=== PATIENT | female | born 1975 | race Caucasian/White ===

== ENCOUNTER 2017-12-26 12:09 | Emergency (ER) | payer BC ==
--- OUTSIDE RECORDS SUMMARY | 2017-12-26 12:11 | XMS REPORT | Clinical Summary ---
:1975 Author Organization [facility] Address [address] [place] [address] Care Team Providers Name Role Phone Asked, No Pcp Primary Care Provider Unavailable Allergies Not on File Current Medications Not on file Active Problems Not on file Encounters Date Type Specialty Care Team Description 03/30/2017 Hospital Encounter Radiology Dora Valdes MD 03/30/2017 Ancillary Orders Radiology Dora Valdes MD 03/11/2017 Hospital Encounter Radiology Dora Valdes MD Encounter for screening mammogram for malignant neoplasm of breast; Encounter for gynecological examination (general) (routine) without abnormal findings 01/13/2017 Transcribe Orders Access Dora Valdes MD Encounter for screening mammogram for malignant neoplasm of breast (Primary Dx); Encounter for gynecological examination (general) (routine) without abnormal findings after 12/25/2016 Social History Tobacco Use Types Packs/Day Years Used Date Never Assessed Sex Assigned at Date Recorded Not on file Last Filed Vital Signs Not on file Plan of Treatment Health Maintenance Due Date Last Done Comments CERVICAL CANCER SCREENING 1995 INFLUENZA VACCINE 11/24/2017 Procedures Procedure Name Priority Date/Time Associated Diagnosis Comments MAMMO SCREENING W Routine 03/11/2017 4:56 Encounter for Results for this CAD BILATERAL PM FORMAT PROOFREADER screening mammogram procedure are in for malignant neoplasm the results of breast section. Encounter for gynecological examination (general) (routine) without abnormal findings after 12/25/2016 Results Mammo Screening w Cad Bilateral (03/11/2017 4:56 PM) Narrative Performed At EXAMINATION: MAMMO SCREENING W CAD BILATERAL 03/11/2017 4:30 PM [facility] COMPARISON:Outside mammograms dated 07/03/2014 performed at [facility] in [place], [place] submitted for comparison. TECHNIQUE: Bilateral digital screening mammography was performed and interpreted using computer-assisted detection. CLINICAL HISTORY: 42-year-old asymptomatic female with history of bilateral breast reduction in 2008. The patient presents for routine screening. FINDINGS: The breast tissue is heterogeneously dense which may obscure small masses. There are redemonstrated bilateral postsurgical changes of reduction mammoplasty. There are no suspicious masses, calcifications or distortions in either breast.There has been no significant interval change compared to prior. IMPRESSION: No specific mammographic features of malignancy. BI-RADS 2:BENIGN Recommend comparison with physical examination. In the absence of new clinical findings, the patient should return for bilateral screening mammography in 1 year. This facility is accredited by the [employer] for Mammography. A negative x-ray report should not delay biopsy if a dominant or clinically suspicious mass is present.Not all cancers are identified by x-ray. [id number] Performing Organization Address City/State/[place] Phone Number [facility] [id number] [place] [address] after 12/25/2016 Insurance Payer Benefit Plan / Group Subscriber ID Type Phone Address BCBS BCBS CHOICE PPO/FEDERAL EMPL PPO xxxxxxxxxxxx PPO BCBS BCBS CHOICE PPO/FEDERAL EMPL PPO xxxxxxxxxxxx PPO Home: [address] [phone] [place], [place] [id number]
[2017-12-26] MEDS ORDERED: ASPIRIN 81 MG CHEWABLE TABLET ONE (12:54)
--- NOTE | 2017-12-26 12:54 | RAD REPORT ---
EXAM DESCRIPTION: CT - Ct Stroke Brain Wo Cont - 12/26/2017 12:44 pm CLINICAL HISTORY: Aphasia;Confused;Visual disturbances<Reason For Exam> COMPARISON: None. TECHNIQUE: Computed axial tomography of the head was obtained. IV contrast was not requested. All CT scans are performed using dose optimization technique as appropriate and may include automated exposure control or mA/KV adjustment according to patient size. FINDINGS: An intracranial bleed is not seen . The ventricles are normal in caliber. No extra-axial fluid collection is noted. Fluid within the sinuses/ mastoids is not seen. IMPRESSION: No acute intracranial abnormality is seen. If patient's symptoms persist MRI of the bra in would be recommended. Jocelyn from the emergency room was notified 12:40 p.m. 12/26/2017
--- NOTE | 2017-12-26 13:01 | RAD REPORT ---
EXAM DESCRIPTION: Nellie Single View12/26/2017 12:53 pm CLINICAL HISTORY: cva COMPARISON: none FINDINGS: The lungs appear clear of acute infiltrate. The heart is normal size IMPRESSION: No acute abnormalities displayed
[2017-12-26 13:05] LABS: Absolute Lymphocytes (CBC) 1.9 K/uL (0.7-4.9); Absolute Monocytes 0.3 K/uL (0.1-1.3); Absolute Neutrophil 3.5 K/uL (1.8-8.0); Basophils % 0.7 % (0-1.3); Eosinophils % 4.3 % (0-4.4); Hematocrit 42.9 % (36.0-45.0); Lymphocytes % 31.9 % (15.3-44.8); MCH 30.2 pg (27.0-35.0); MCV 86.6 fL (80-100); MPV 9.1 fL (7.6-11.3); Monocytes % 5.5 % (3.3-12.3); RBC Red Blood Cell Count 4.95 M/uL (3.86-4.86)
--- NOTE | 2017-12-26 13:05 | EDPHYS ---
Physician Documentation [facility] Name: Oralia Warren Age: 42 yrs Sex: Female : 1975 Arrival Date: 12/26/2017 Time: 12:11 Bed 7 Private MD: ED Physician Felix Dougherty HPI: 12/26 13:17 This 42 yrs old Female presents to ER via Ambulatory with complaints of kdr Vision Problem, Confusion. 13:17 The patient presents to the emergency department with weakness of the left side of the kdr face, a speech or higher order brain function problem, aphasia, that is mild, paresthesias of the left side of the face, that is mild, a vision problem, Scotomas to right visual field in both eyes. Onset: The symptoms/episode began/occurred acutely, suddenly, at 11:30. Context: occurred at home, occurred while the patient was at rest. Associated signs and symptoms: The patient has no apparent associated signs or symptoms. Associated signs and symptoms: Pertinent positives: visual field changes, Pertinent negatives: headache, seizure, syncope, near-syncope, blurred vision, loss of vision. Severity of symptoms: At their worst the symptoms were mild in the emergency department the symptoms have resolved and did so just prior to arrival. Patient's baseline: Neuro: alert and fully oriented, Motor: no deficits, Ambulation: walks without assistance, Speech: normal, The patient has a previous history of Migraine Hx during puberty. Current symptoms: minor left facial weakness and tingling. The patient has not experienced similar symptoms in the past. The patient has not recently seen a physician. 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 - Social history:: Smoking status: Patient/guardian denies using tobacco. - Ebola Screening: : No symptoms or risks identified at this time. ROS: 13:17 Constitutional: Negative for fever, chills, and weight loss, Eyes: Negative for injury, kdr pain, redness, and discharge, ENT: Negative for injury, pain, and discharge, Neck: Negative for injury, pain, and swelling, Cardiovascular: Negative for chest pain, palpitations, and edema, Respiratory: Negative for shortness of breath, cough, wheezing, and pleuritic chest pain, Abdomen/GI: Negative for abdominal pain, nausea, vomiting, diarrhea, and constipation, Back: Negative for injury and pain, : Negative for injury, bleeding, discharge, and swelling, MS/Extremity: Negative for injury and deformity, Skin: Negative for injury, rash, and discoloration, Psych: Negative for depression, anxiety, suicide ideation, homicidal ideation, and hallucinations, Allergy/Immunology: Negative for hives, rash, and allergies, Endocrine: Negative for neck swelling, polydipsia, polyuria, polyphagia, and marked weight changes, Hematologic/Lymphatic: Negative for swollen nodes, abnormal bleeding, and unusual bruising. 13:17 Neuro: Positive for numbness, speech changes, Negative for altered mental status, headache, loss of consciousness, seizure activity, syncope, near syncope, tremor, weakness. Exam: 13:04 Constitutional: This is a well developed, well nourished patient who is awake, alert, kdr and in no acute distress. Head/Face: Normocephalic, atraumatic. Eyes: Pupils equal round and reactive to light, extra-ocular motions intact. Lids and lashes normal. Conjunctiva and sclera are non-icteric and not injected. Cornea within normal limits. Periorbital areas with no swelling, redness, or edema. Neck: Trachea midline, no thyromegaly or masses palpated, and no cervical lymphadenopathy. Supple, full range of motion without nuchal rigidity, or vertebral point tenderness. No Meningismus. Chest/axilla: Normal chest wall appearance and motion. Nontender with no deformity. No lesions are appreciated. Cardiovascular: Regular rate and rhythm with a normal S1 and S2. No gallops, murmurs, or rubs. Normal PMI, no JVD. No pulse deficits. Respiratory: Lungs have equal breath sounds bilaterally, clear to auscultation and percussion. No rales, rhonchi or wheezes noted. No increased work of breathing, no retractions or nasal flaring. Abdomen/GI: Soft, non-tender, with normal bowel sounds. No distension or tympany. No guarding or rebound. No evidence of tenderness throughout. Back: No spinal tenderness. No costovertebral tenderness. Full range of motion. Skin: Warm, dry with normal turgor. Normal color with no rashes, no lesions, and no evidence of cellulitis. MS/ Extremity: Pulses equal, no cyanosis. Neurovascular intact. Full, normal range of motion. Psych: Awake, alert, with orientation to person, place and time. Behavior, mood, and affect are within normal limits. 13:04 Neuro: Orientation: is normal, Mentation: is normal, Cranial nerves: normal except Left facial nerve weakness (V \T\ VII), Cerebellar function: is grossly normal, Motor: is normal, Sensation: no obvious gross deficits. Vital Signs: 12:18 BP 158 / 119; Pulse 92; Resp 18 S; Temp 97.9(TE); Pulse Ox 100% on R/A; Weight 74.84 kg aa5 (R); Height 5 ft. 2 in. (157.48 cm) (R); Pain 0/10; 12:47 Temp 98.2(TE); sg 12:58 BP 148 / 88; Pulse 76; Resp 16; Pulse Ox 100% on R/A; la1 13:07 BP 135 / 98; Pulse 76; Resp 19; Pulse Ox 100% on R/A; la1 12:18 Body Mass Index 30.18 (74.84 kg, 157.48 cm) aa5 NIH Stroke Scale Scores: 12:41 NIHSS Score: 1 la1 13:04 NIHSS Score: 1 kdr MDM: 12:45 Data reviewed: vital signs, nurses notes, lab test result(s), EKG, radiologic studies. kdr Counseling: I had a detailed discussion with the patient and/or guardian regarding: the historical points, exam findings, and any diagnostic results supporting the discharge/admit diagnosis, lab results, radiology results, the need to transfer to another facility. ED course: 12:40 CT Negative, D/w neurology at [facility], agree no tPA, ASA only now, accept in transfer to [facility] service with MRI/neurology consult. 13:04 Patient medically screened. kdr 12/26 12:37 Order name: Hepatic Function kdr 12/26 12:37 Order name: Basic Metabolic Panel kdr 12/26 12:37 Order name: CBC with Diff kdr 12/26 12:37 Order name: Protime (+inr) kdr 12/26 12:37 Order name: Ptt, Activated kdr 12/26 12:37 Order name: CT Stroke Brain w/o Contrast kdr 12/26 12:37 Order name: Stroke CXR 1 View kdr 12/26 12:37 Order name: EKG; Complete Time: 12:38 kdr 12/26 12:37 Order name: Accucheck; Complete Time: 12:55 kdr 12/26 12:37 Order name: Cardiac monitoring; Complete Time: 12:55 kdr 12/26 12:37 Order name: EKG - Nurse/Tech; Complete Time: 12:55 kdr 12/26 12:37 Order name: IV Saline Lock; Complete Time: 12:51 kdr 12/26 12:37 Order name: Labs collected and sent; Complete Time: 12:51 kdr 12/26 12:37 Order name: NPO; Complete Time: 12:51 kdr 12/26 12:37 Order name: O2 Per Protocol; Complete Time: 12:51 kdr 12/26 12:37 Order name: O2 Sat Monitoring; Complete Time: 12:51 kdr 12/26 12:37 Order name: Stroke Swallow Screen; Complete Time: 12:51 kdr Administered Medications: 12:55 Drug: Aspirin Chewable Tablet 324 mg Route: PO; la1 13:04 Follow up: Response: No adverse reaction la1 Point of Care Testing: Blood Glucose: 12:45 Blood Glucose: 87 mg/dL; sg Ranges: Critical Glucose Levels:Adult <50 mg/dl or >400 mg/dl <40 mg/dl or >180 mg/dl Disposition: 12/26/17 13:04 Transfer ordered to [facility]. Diagnosis is Visual disturbance (bilateral right visual field scotomas) , expressive and receptive aphasia - both resolved. persistent left facial weakness. - Reason for transfer: Higher level of care. - Accepting physician is Dr. Dos Santos. - Condition is Fair. - Problem is new. - Symptoms have improved. NIH Stroke Scale - NIH Stroke Score Date: 12/26/2017 Time: 12:41 Total Score = 1 1a. Level of Consciousness (LOC) - 0(Alert) 1b. Level of Consciousness (LOC) (Year \T\ Age) - 0(Both) 1c. LOC Commands (Open \T\ Closes Eyes/Field Geologist) - 0(Both) 2. Best Gaze (Lateral Gaze Paresis) - 0(Normal) 3. Visual Field Loss - 0(No visual loss) 4. Facial Palsy - 1(Minor Paralysis) 5a. Left Arm: Motor (10-second hold) - 0(No drift) 5b. Right Arm: Motor (10-second hold) - 0(No drift) 6a. Left Leg: Motor (5-second hold - always test supine) - 0(No drift) 6b. Right Leg: Motor (5-second hold - always test supine) - 0(No drift) 7. Limb Ataxia (finger/nose \T\ heel/gonsales - test with eyes open) - 0(Absent) 8. Sensory Loss (pinprick arms/legs/face) - 0(Normal) 9. Best Language: Aphasia (description/naming/reading) - 0(No aphasia) 10. Dysarthria (speech clarity - read or repeat words) - 0(Normal) 11. Extinction and Inattention (visual/tactile/auditory/spatial/personal) - 0(No abnormality) Initials: la1 NIH Stroke Scale - NIH Stroke Score Date: 12/26/2017 Time: 13:04 Total Score = 1 1a. Level of Consciousness (LOC) - 0(Alert) 1b. Level of Consciousness (LOC) (Year \T\ Age) - 0(Both) 1c. LOC Commands (Open \T\ Closes Eyes/Field Geologist) - 0(Both) 2. Best Gaze (Lateral Gaze Paresis) - 0(Normal) 3. Visual Field Loss - 0(No visual loss) 4. Facial Palsy - 1(Minor Paralysis) 5a. Left Arm: Motor (10-second hold) - 0(No drift) 5b. Right Arm: Motor (10-second hold) - 0(No drift) 6a. Left Leg: Motor (5-second hold - always test supine) - 0(No drift) 6b. Right Leg: Motor (5-second hold - always test supine) - 0(No drift) 7. Limb Ataxia (finger/nose \T\ heel/gonsales - test with eyes open) - 0(Absent) 8. Sensory Loss (pinprick arms/legs/face) - 0(Normal) 9. Best Language: Aphasia (description/naming/reading) - 0(No aphasia) 10. Dysarthria (speech clarity - read or repeat words) - 0(Normal) 11. Extinction and Inattention (visual/tactile/auditory/spatial/personal) - 0(No abnormality) Initials: kdr Signatures: Dispatcher [employer] EDNY Felix Dougherty MD MD kdr Leyda Grant, RN RN aa5 Chino Panchal RN RN la1 Corrections: (The following items were deleted from the chart) 12:40 12:37 Ct Stroke Brain Wo Cont ordered. [facility] EDNY 13:49 13:04 12/26/2017 13:04 Transfer ordered to [facility]. la1 Diagnosis is Visual disturbance (bilateral right visual field scotomas) , expressive and receptive aphasia - both resolved. persistent left facial weakness. Reason for transfer: Higher level of care. Accepting physician is Dr. Dos Santos. Condition is Fair. Problem is new. Symptoms have improved. kdr
--- NOTE | 2017-12-26 13:05 | ER ---
Nurse's Notes [facility] Name: Oralia Warren Age: 42 yrs Sex: Female : 1975 Arrival Date: 12/26/2017 Time: 12:11 Bed 7 Private MD: Diagnosis: Visual disturbance (bilateral right visual field scotomas) , expressive and receptive aphasia - both resolved. persistent left facial weakness Presentation: 12/26 12:15 Presenting complaint: Patient states: "I had eye surgery about 2 months ago but today aa5 around 11 am I was seeing floaters and it lasted about 30 minutes and went away". Pt states "I was trying to text my doctor and I was having trouble texting because I was confused". Pt reports tingling to left side of face. A\\T\\O x 4 in triage, telecommunications clerk equal, speech is clear, steady gait, PERRL. Transition of care: patient was not received from another setting of care. Onset of symptoms was December 26, 2017. Risk Assessment: Do you want to hurt yourself or someone else? Patient reports no desire to harm self or others. Initial Sepsis Screen: Does the patient meet any 2 criteria? No. Patient's initial sepsis screen is negative. Does the patient have a suspected source of infection? No. Patient's initial sepsis screen is negative. Care prior to arrival: None. 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 - Social history:: Smoking status: Patient/guardian denies using tobacco. - Ebola Screening: : No symptoms or risks identified at this time. Screenin:41 Abuse screen: Denies threats or abuse. Nutritional screening: No deficits noted. la1 Tuberculosis screening: No symptoms or risk factors identified. Fall Risk None identified. 12:54 The patient has not been NPO before screening. The patient is alert, able to follow la1 commands. The patient does not exhibit slurred or garbled speech The patient is not exhibiting difficulty speaking. The patient is exhibiting difficulty understanding words. The patient is able to swallow own secretions with no drooling or need for suction. Patient tolerated one teaspoon of water. No drooling, immediate coughing, gurgling, or clearing of the throat was noted. The patient tolerated 90mL of water. No drooling, immediate coughing, gurgling, or clearing of the throat was noted. The patient passed the bedside swallow screening. Oral medications may be given as ordered. Contact Physician for further diet orders. Provider notified of bedside swallow screening results: Felix Dougherty MD. Assessment: 12:32 Reassessment: code stroke called at 1231. la1 12:41 Reassessment: erp at bedside. General: Appears comfortable, Behavior is calm, la1 cooperative. Pain: Denies pain. Neuro: Level of Consciousness is awake, alert, obeys commands, Oriented to person, place, time, situation, Airway Controller are equal bilaterally Moves all extremities. Full function Gait is steady, Speech is normal, Facial droop on left, Pupils are PERRLA, Tingling in left cheek and left jaw. Cardiovascular: Denies chest pain, shortness of breath, Heart tones S1 S2 present Capillary refill < 3 seconds. Respiratory: Airway is patent Respiratory effort is even, unlabored, Respiratory pattern is regular, symmetrical. GI: No signs and/or symptoms were reported involving the gastrointestinal system. : No signs and/or symptoms were reported regarding the genitourinary system. 13:35 Reassessment: Patient appears in no apparent distress at this time. No changes from la1 previously documented assessment. Patient and/or family updated on plan of care and expected duration. Pain level reassessed. Vital Signs: 12:18 BP 158 / 119; Pulse 92; Resp 18 S; Temp 97.9(TE); Pulse Ox 100% on R/A; Weight 74.84 kg aa5 (R); Height 5 ft. 2 in. (157.48 cm) (R); Pain 0/10; 12:47 Temp 98.2(TE); sg 12:58 BP 148 / 88; Pulse 76; Resp 16; Pulse Ox 100% on R/A; la1 13:07 BP 135 / 98; Pulse 76; Resp 19; Pulse Ox 100% on R/A; la1 12:18 Body Mass Index 30.18 (74.84 kg, 157.48 cm) aa5 NIH Stroke Scale Scores: 12:41 NIHSS Score: 1 la1 13:04 NIHSS Score: 1 kdr ED Course: 12:11 Patient arrived in ED. mr 12:17 Triage completed. aa5 12:17 Arm band placed on. aa5 12:27 Felix Dougherty MD is Attending Physician. kdr 12:32 Chino Panchal, RN is Primary Nurse. la1 12:37 CT completed. Patient moved to CT via stretcher. Patient moved back from CT. cw1 12:42 Placed in gown. Bed in low position. Call light in reach. campus monitor on. Pulse ox la1 on. NIBP on. 12:44 CT Stroke Brain w/o Contrast In Process Unspecified. EDMS 12:46 Inserted saline lock: 22 gauge in right antecubital area, using aseptic technique. sg ,using aseptic technique. insertion by Chino Panchal RN Blood collected. 12:50 X-ray completed. Portable x-ray completed in exam room. Patient tolerated procedure jb2 well. 12:51 Stroke CXR 1 View In Process Unspecified. EDMS 12:59 \\T\\1240 initiated a transfer to [facility] with [facility]/ \\T\\1241 connected the nuerologist eb Dr. Hinson with ED doctor for patient tranfer consulation/ \\T\\ [address] Madrigal with ED doctor for patient transfer consulation/ \\T\\1256 administrative approval given by Helen Fontaine pt to go to room 2454- report to be called to [phone]. 13:49 No provider procedures requiring assistance completed. Patient transferred, IV remains la1 in place. Administered Medications: 12:55 Drug: Aspirin Chewable Tablet 324 mg Route: PO; la1 13:04 Follow up: Response: No adverse reaction la1 Point of Care Testing: Blood Glucose: 12:45 Blood Glucose: 87 mg/dL; sg Ranges: Outcome: 13:04 ER care complete, transfer ordered by . kdr 13:49 Transferred by ground EMS to [facility], Transfer form completed. la1 X-rays sent w/ patient. 13:49 Condition: stable 13:49 Instructed on the need for transfer. 13:49 Patient left the ED. la1 NIH Stroke Scale - NIH Stroke Score Date: 12/26/2017 Time: 12:41 Total Score = 1 1a. Level of Consciousness (LOC) - 0(Alert) 1b. Level of Consciousness (LOC) (Year \\T\\ Age) - 0(Both) 1c. LOC Commands (Open \\T\\ Closes Eyes/Facilities Maintenance Manager) - 0(Both) 2. Best Gaze (Lateral Gaze Paresis) - 0(Normal) 3. Visual Field Loss - 0(No visual loss) 4. Facial Palsy - 1(Minor Paralysis) 5a. Left Arm: Motor (10-second hold) - 0(No drift) 5b. Right Arm: Motor (10-second hold) - 0(No drift) 6a. Left Leg: Motor (5-second hold - always test supine) - 0(No drift) 6b. Right Leg: Motor (5-second hold - always test supine) - 0(No drift) 7. Limb Ataxia (finger/nose \\T\\ heel/gonsales - test with eyes open) - 0(Absent) 8. Sensory Loss (pinprick arms/legs/face) - 0(Normal) 9. Best Language: Aphasia (description/naming/reading) - 0(No aphasia) 10. Dysarthria (speech clarity - read or repeat words) - 0(Normal) 11. Extinction and Inattention (visual/tactile/auditory/spatial/personal) - 0(No abnormality) Initials: ms1 NIH Stroke Scale - NIH Stroke Score Date: 12/26/2017 Time: 13:04 Total Score = 1 1a. Level of Consciousness (LOC) - 0(Alert) 1b. Level of Consciousness (LOC) (Year \\T\\ Age) - 0(Both) 1c. LOC Commands (Open \\T\\ Closes Eyes/Facilities Maintenance Manager) - 0(Both) 2. Best Gaze (Lateral Gaze Paresis) - 0(Normal) 3. Visual Field Loss - 0(No visual loss) 4. Facial Palsy - 1(Minor Paralysis) 5a. Left Arm: Motor (10-second hold) - 0(No drift) 5b. Right Arm: Motor (10-second hold) - 0(No drift) 6a. Left Leg: Motor (5-second hold - always test supine) - 0(No drift) 6b. Right Leg: Motor (5-second hold - always test supine) - 0(No drift) 7. Limb Ataxia (finger/nose \\T\\ heel/gonsales - test with eyes open) - 0(Absent) 8. Sensory Loss (pinprick arms/legs/face) - 0(Normal) 9. Best Language: Aphasia (description/naming/reading) - 0(No aphasia) 10. Dysarthria (speech clarity - read or repeat words) - 0(Normal) 11. Extinction and Inattention (visual/tactile/auditory/spatial/personal) - 0(No abnormality) Initials: kdr Signatures: Dispatcher [employer] EDGera Jefferson, RN RN sg Felix Dougherty MD MD kdr Rivera, Maria mr RiteshMaurice jb2 Leyda Grant RN RN aa5 Emma Mars cw1 Chino Panchal RN RN la1 Roseann Galvan Corrections: (The following items were deleted from the chart) 12:19 12:15 Presenting complaint: Patient states: "I had eye surgery about 2 months aa5 ago but today around 11 am I was seeing floaters and it lasted about 30 minutes and went away". Pt states "I was trying to text my doctor and I was having trouble texting because I was confused" aa5 12:19 12:15 Acuity: SHIRA 3 aa5 aa5 12:25 12:15 Presenting complaint: Patient states: "I had eye surgery about 2 months aa5 ago but today around 11 am I was seeing floaters and it lasted about 30 minutes and went away". Pt states "I was trying to text my doctor and I was having trouble texting because I was confused". Pt reports tingling to left side of face. aa5
[2017-12-26 13:08] LABS: Protime INR 0.9
[2017-12-26 13:31] LABS: Albumin 4.4 g/dL (3.4-5.0); Bilirubin Direct 0.1 mg/dL (0-0.2); Bilirubin Total 0.3 mg/dL (0.2-1.0); Potassium 3.4 mmol/L (3.5-5.1); Protein, Total 7.9 g/dL (6.4-8.2)
--- NOTE | 2017-12-27 07:56 | EKG ---
Test Date: 2017-12-26 Test Time: 12:41:20 [employer]en Fence Erector: KIMBERLY MEASUREMENT RESULTS: Intervals: Rate: 77 NH: 150 QRSD: 96 QT: 390 QTc: 441 [place]: P: 14 NH: 150 QRS: 9 T: 22 INTERPRETIVE STATEMENTS: Normal sinus rhythm Cannot rule out Anterior infarct, age undetermined Abnormal ECG No previous ECG available for comparison Electronically Signed On 12-27-17 07:54:58 CDT by Titus Davila
== END 2017-12-26 13:49 | disposition short-term general hospital (02) ==
LOC: ER 12:09
DX: R29.810 Facial weakness (principal)
CPT/HCPCS: 36415; 70450; 71045; 80048; 80076; 82962; 85025; 85610; 85730; 93005; 99285

== ENCOUNTER 2020-01-19 17:33 | Emergency (ER) | payer BC ==
--- OUTSIDE RECORDS SUMMARY | 2020-01-19 17:35 | XMS REPORT | Continuity of Care Document ---
:1975 Author Organization [facility] t Address [address] [place] [address] Care Team Providers Name Role Phone DAYLIN Attending Clinician Unavailable DAYLIN Admitting Clinician Unavailable Problems Condition Condition Condition Status Onset Resolution Last Treating Co mments Source Name Details Category Date Date Treatment Clinician Date Numbness N[facility] Medical [address] [place] [address] CVA CVA Disease Active [facility] (cerebral 12-26 [place] [facility] - vascular vascular 00:00: Medica l accident) accident) 00 [facility] Allergies, Adverse Reactions, Alerts This patient has no known allergies or adverse reactions. Family History Family Member Diagnosis Comments Start Date Stop Date Source Natural father Heart disease [facility] Maternal grandmother Diabetes [facility] Maternal grandmother Stroke [facility] Natural mother Hyperlipidemia [facility] Natural mother Hypertension [facility] Paternal grandmother Cancer [facility] Paternal uncle Alcohol abuse [facility] Paternal uncle Early [facility] Paternal uncle Heart disease [facility] Social History Social Habit Start Date Stop Date Quantity Comments Source Sex Assigned At [facility] Cigarettes smoked 2017-12-26 2017-12-26 [facility] - current (pack per 00:00:00 00:00:00 [facility] day[facility] - Reported Cigarette 2017-12-26 2017-12-26 [facility] - pack-years 00:00:00 00:00:00 [facility] History of tobacco 2012-12-26 Current smoker [facility] Smoking Status Start Date Stop Date Source Former smoker 2017-12-26 00:00:00 2017-12-26 00:00:[address] [facility] Medications Ordered Filled Start Stop Current Ordering Indication Dosage Frequency Signature Comments Components Source Medication Medication Date Date Medication? Clinician (SIG) Name Name omega-3 Yes 1g QD Take [address] [facility] fatty 12-26 [facility] - acids-fish 15:44: daily. Medic al oil 23 Center 340-1,000 mg Cap per capsule Procedures This patient has no known procedures. Results Test Description Test Time Test Comments Results Result Comments Source HEMOGLOBIN A1C 2017-12-27 09:49:00 Test Item Value Reference Range Interpretation Comme nts HEMOGLOBIN A1C (BEAKER) (test code = 368) 4.9 % 4.3-6.1 TSH/FREE T4 IF [id number] 06:28:00 Test Item Value Reference Range Interpretation Comments THYROID STIMULATING HORMONE 1.58 uIU/mL 0.35-4.94 (BEAKER) (test code = 772) VITAMIN B12 AND [id number] 06:28:00 Test Item Value Reference Range Interpretation Comments VITAMIN B12 (BEAKER) (test code = 445 pg/mL 213-816 774) FOLATE (BEAKER) (test code = 362) 11.3 ng/mL >=7.0 LIPID [id number] 05:59:00 Test Item Value Reference Range Interpretation Comments TRIGLYCERIDES (BEAKER) (test code = 104 mg/dL 540) CHOLESTEROL (BEAKER) (test code = 192 mg/dL 631) HDL CHOLESTEROL (BEAKER) (test code 43 mg/dL = 976) LDL CHOLESTEROL CALCULATED (BEAKER) 128 mg/dL (test code = 633) Triglyceride Reference Range: Low Risk <150 Borderline 150-199 High Risk 200-499 Very High Risk >=500Cholesterol Reference Range: Low Risk <200 Borderline 200-239 High Risk >240HDL Cholesterol Reference Range: Low Risk >=60 High Risk <40LDL Cholesterol Reference Range: Optimal <100 Near Optimal 100-129 Borderline 130-159 High 160-189 Very High >=190 FastingPREGNANCY SCREEN, [id number] 05:48:00 Test Item Value Reference Range Interpretation Comments TEST URINE (BEAKER) (test Negative code = 583) MR, MRA, BRAIN, WITHOUT [id number] 02:10:00Reason for exam:->Ischemic Stroke EvaluationFINAL REPORT CLINICAL HISTORY: Ischemic Stroke Evaluationexpressive aphasia TECHNIQUE: MRA of the head utilizing 3-D ghgd-ub-xextev technique, with 3-D reconstructions. MRA of the neck utilizing 2- D and 3-D lzrk-zt-kpzokt technique, with 3-D reconstructions. COMPARISON: None Findings: MRA head: There is no evidence of intracranial aneurysm, focal stenosis, or major branch vessel occlusion. MRA Neck The carotid arteries in the neck are patent including their bifurcations. There is antegrade flow in the vertebral arteries in the neck. IMPRESSION:No evidence for a major [place] proximal branch vessel occlusion. No evidence of hemodynamically significant stenosisin the cervical carotid or vertebral arteries by NASCET criteria. Signed: Ama Oliveira Verified Date/Time: 12/27/2017 02:10:36 Reading Location: [address] Transitional Reading Room MR, MRA, NECK, WITHOUT IV [id number] 02:10:00Reason for exam:->Ischemic Stroke EvaluationFINAL REPORT CLINICAL HISTORY: Ischemic Stroke Evaluationexpressive aphasia TECHNIQUE: MRA of the head utilizing 3-D eivq-wn-yujxms technique, with 3-D reconstructions. MRA of the neck utilizing 2- D and 3-D kqwy-qu-ybcmpf technique, with 3-D reconstructions. COMPARISON: None Findings: MRA head: There is no evidence of intracranial aneurysm, focal stenosis, or major branch vessel occlusion. MRA Neck The carotid arteries in the neck are patent including their bifurcations. There is antegrade flow in the vertebral arteries in the neck. IMPRESSION:No evidence for a major [place] proximal branch vessel occlusion. No evidence of hemodynamically significant stenosisin the cervical carotid or vertebral arteries by NASCET criteria. Signed: Ama Oliveira Verified Date/Time: 12/27/2017 02:10:36 Reading Location: [address] Transitional Reading Room MR, BRAIN, WITHOUT [id number] 23:00:00Reason for exam:->Ischemic Stroke EvaluationFINAL REPORT MRI Brain without contrast Clinical History: Ischemic Stroke Evaluationexpressive aphasia Technique: MRI of the brain utilizing axial T2, FLAIR, GRE, DWI; sagittal and coronal T1-weighted images. Comparisons: None Findings: There is no evidence of acute infarct or hemorrhage. Brain parenchyma is within normal limits. Ventricles are normal in size and configuration. There is no hydrocephalus or midline shift. There are no extra- axial fluid collections. The craniocervical junction is preserved. The major intracranial flow-voids appear patent. Mucosal thickening in the left maxillary sinus. Middle ears and mastoid air cells are clear. Intraorbital contents are unremarkable. No aggressive osseous or soft tissue lesions identified. IMPRESSION: No evidence of acuteinfarct, hemorrhage, or hydrocephalus. Signed: Ama Oliveira [facility] Verified Date/Time: 12/26/2017 23:00:57 Reading Location: [address] Transitional Reading Room BASI METABOLIC [id number] 18:34:00 Test Item Value Reference Range Interpretation Comments SODIUM (BEAKER) 138 meq/L 136-145 (test code = 381) POTASSIUM (BEAKER) 3.3 meq/L 3.5-5.1 L (test code = 379) CHLORIDE (BEAKER) 107 meq/L 98-107 (test code = 382) CO2 (BEAKER) (test 22 meq/L 22-29 code = 355) BLOOD UREA NITROGEN 8 mg/dL 7-21 (BEAKER) (test code = 354) CREATININE (BEAKER) 0.75 mg/dL 0.57-1.25 (test code = 358) GLUCOSE RANDOM 107 mg/dL 70-105 H (BEAKER) (test code = 652) CALCIUM (BEAKER) 9.6 mg/dL 8.4-10.2 (test code = 697) EGFR (BEAKER) (test 84 mL/min/1.73 ESTIMA LOWELL GFR IS code = 1092) sq m NOT ACCURATE CREATININE CLEARANCE IN PREDICTING GLOMERULAR FILTRATION RATE . ESTIMATED GFR I S NOT APPLICABLE FOR DIALYSIS PATIEN TS. CBC W/PLT COUNT & AUTO [id number] 18:18:00 Test Item Value Reference Range Interpretation Comments WHITE BLOOD CELL COUNT (BEAKER) 7.5 K/ L 3.5-10.5 (test code = 775) RED BLOOD CELL COUNT (BEAKER) 4.44 M/ L 3.93-5.22 (test code = 761) HEMOGLOBIN (BEAKER) (test code = 13.0 GM/DL 11.2-15.7 410) HEMATOCRIT (BEAKER) (test code = 38.4 % 34.1-44.9 411) MEAN CORPUSCULAR VOLUME (BEAKER) 86.5 fL 79.4-94.8 (test code = 753) MEAN CORPUSCULAR HEMOGLOBIN 29.3 pg 25.6-32.2 (BEAKER) (test code = 751) MEAN CORPUSCULAR HEMOGLOBIN CONC 33.9 GM/DL 32.2-35.5 (BEAKER) (test code = 752) RED CELL DISTRIBUTION WIDTH 12.4 % 11.7-14.4 (BEAKER) (test code = 412) PLATELET COUNT (BEAKER) (test 271 K/CU MM 150-450 code = 756) MEAN PLATELET VOLUME (BEAKER) 10.4 fL 9.4-12.3 (test code = 754) NUCLEATED RED BLOOD CELLS 0 /100 WBC 0-0 (BEAKER) (test code = 413) NEUTROPHILS RELATIVE PERCENT 54 % (BEAKER) (test code = 429) LYMPHOCYTES RELATIVE PERCENT 36 % (BEAKER) (test code = 430) MONOCYTES RELATIVE PERCENT 6 % (BEAKER) (test code = 431) EOSINOPHILS RELATIVE PERCENT 4 % (BEAKER) (test code = 432) BASOPHILS RELATIVE PERCENT 1 % (BEAKER) (test code = 437) NEUTROPHILS ABSOLUTE COUNT 4.06 K/ L 1.56-6.13 (BEAKER) (test code = 670) LYMPHOCYTES ABSOLUTE COUNT 2.68 K/ L 1.18-3.74 (BEAKER) (test code = 414) MONOCYTES ABSOLUTE COUNT (BEAKER) 0.44 K/ L 0.24-0.36 H (test code = 415) EOSINOPHILS ABSOLUTE COUNT 0.26 K/ L 0.04-0.36 (BEAKER) (test code = 416) BASOPHILS ABSOLUTE COUNT (BEAKER) 0.06 K/ L 0.01-0.08 (test code = 417) IMMATURE GRANULOCYTES-RELATIVE 0 % 0-1 PERCENT (BEAKER) (test code = 2801)
--- OUTSIDE RECORDS SUMMARY | 2020-01-19 17:35 | XMS REPORT | Clinical Summary ---
:1975 Author Organization [facility] Address [address] [place] [address] Care Team Providers Name Role Phone Unavailable Primary Care Provider Unavailable Allergies No Known Allergies Medications Medication Sig Dispensed Refills Start Date End Date Status omega-3 fatty Take 1 g by mouth 0 Active acids-fish oil daily. 340-1,000 mg Cap per capsule Active Problems Problem Noted Date Numbness 12/27/2017 CVA (cerebral vascular accident) 12/26/2017 Family History Medical History Relation Name Comments Heart disease Father Diabetes Maternal Grandmother Stroke Maternal Grandmother Hyperlipidemia Mother Hypertension Mother Cancer Paternal Grandmother Alcohol abuse Paternal Uncle Early Paternal Uncle Heart disease Paternal Uncle Relation Name Status Comments Father Alive Maternal Grandmother Alive Mother Alive thyroid disease Paternal Grandmother Alive Paternal Uncle Social History Tobacco Use Types Packs/Day Years Used Date Former Smoker 0.25 10 Quit: 12/27/19 13 Smokeless Tobacco: Never Used Tobacco Cessation: Counseling Given: No Alcohol Use Drinks/Week oz/Week Comments Yes 5 Cans of beer 3.0 Sex Assigned at Date Recorded Not on file Job Start Date Occupation Industry Not on file Not on file Not on file Travel History Travel Start Travel End No recent travel history available. Last Filed Vital Signs Not on file Plan of Treatment Not on file Results Not on fileafter 2019 Insurance Payer Benefit Plan / Subscriber ID Type Phone Address Group BLUE CROSS/BLUE BCBS OS xxxxxxxxxxxx PPO [phone] [address] SHIELD [place]/PP[place] [address] Advance Directives For more information, please contact:[place] [address] [place], [place] [phone] Code Status Date Activated Date Inactivated Comments Full Code 12/26/2017 4:54 PM 12/27/2017 5:36 PM This code status was determined by: Patient
[2020-01-19] MEDS ORDERED: MECLIZINE HCL 12.5 MG TAB ONE (18:49)
[2020-01-19] MEDS ORDERED: ONDANSETRON 4 MG/2 ML VIAL ONE (18:49)
[2020-01-19 19:08] LABS: Absolute Lymphocytes (CBC) 1.4 K/uL (0.7-4.9); Basophils % 0.6 % (0-1.3); Hematocrit 36.7 % (36.0-45.0); Lymphocytes % 22.9 % (15.3-44.8); MPV 9.1 fL (7.6-11.3); RBC Red Blood Cell Count 4.32 M/uL (3.86-4.86)
--- NOTE | 2020-01-19 19:08 | RAD REPORT ---
EXAM DESCRIPTION: RAD - Chest Single View - 01/19/2020 6:55 pm CLINICAL HISTORY: dizzinesssyncope, shortness of breath COMPARISON: Two chest December 06 TECHNIQUE: AP portable chest image was obtained 01/19/2020 6:55 pm . FINDINGS: Lungs are clear. Heart and vasculature are normal. No measurable pleural effusion and no p neumothorax. No acute bony abnormality seen. No acute aortic findings suspected. IMPRESSION: No acute cardiopulmonary process. No significant interval change.
--- NOTE | 2020-01-19 19:09 | RAD REPORT ---
EXAM DESCRIPTION: CT - Head Brain Wo Cont - 01/19/2020 6:56 pm CLINICAL HISTORY: DIZZINESS, syncope COMPARISON: Ct Stroke Brain Wo Cont dated 12/26/2017 TECHNIQUE: Axial 5 mm thick images of the head were obtained without IV contrast. All CT scans are performed using dose optimization technique as appropriate and may include automated exposure control or mA/KV adjustment according to patient size. FINDINGS: No intracranial hemorrhage, mass, edema or shift of mid-line structures. No acute infarcti on changes seen. No abnormal extra-axial fluid collections. Ventricles are normal. Mastoid air cells and visualized portions of the paranasal sinuses are clear. No acute bony findings. No significant change from comparison. IMPRESSION: Negative non-contrast CT head examination.
[2020-01-19 19:11] LABS: Protime INR 0.93
[2020-01-19 19:16] LABS: ALT/SGPT 30 U/L (12-78); AST/SGOT 20 U/L (15-37); Albumin 3.8 g/dL (3.4-5.0); Alkaline Phosphatase 47 U/L (45-117); BUN Blood Urea Nitrogen 10 mg/dL (7-18); Bicarbonate 28 mmol/L (21-32); Bilirubin Direct < 0.1 mg/dL (0-0.2); Bilirubin Total 0.2 mg/dL (0.2-1.0); Glucose Level 127 mg/dL (74-106); Magnesium 1.9 mg/dL (1.8-2.4); NT PRO-BNP 64 pg/mL (<125); Protein, Total 7.3 g/dL (6.4-8.2); Sodium Level 140 mmol/L (136-145); Troponin (Emerg Dept Use Only) < 0.02 ng/mL (0.0-0.045)
--- NOTE | 2020-01-19 20:31 | RAD REPORT ---
EXAM DESCRIPTION: CT - Head angio - 01/19/2020 8:21 pm CLINICAL HISTORY: DIZZINESS TECHNIQUE: During dynamic enhancement using nonionic IV contrast, axial 1 millimeter thick images of the head were obtained. Sagittal and axial reconstruction images were generated using MIP technique and reviewed. All CT scans are performed using dose optimization technique as appropriate and may include automated exposure control or mA/KV adjustment according to patient size. COMPARISON: CT head same date FINDINGS: No aneurysm or vascular malformation identified. Major venous sinuses are patent. No stenosis, named branch occlusion, vasculitis or other significant vascular finding identifiable. IMPRESSION: Negative CT angio head examination.
--- NOTE | 2020-01-19 20:34 | RAD REPORT ---
EXAM DESCRIPTION: CT - Neck Angio - 01/19/2020 8:21 pm CLINICAL HISTORY: dizziness TECHNIQUE: During dynamic enhancement using nonionic IV contrast, axial 2 mm thick images of the nec k were obtained. Sagittal and axial reconstruction images were generated using MIP technique and revi ewed. All CT scans are performed using dose optimization technique as appropriate and may include automated exposure control or mA/KV adjustment according to patient size. COMPARISON: CT head same date FINDINGS: No aneurysm or vascular malformation identified. No carotid or vertebral dissection. No aortic arch or great vessel origin abnormality seen. Left vertebral artery arises from the aorta a s a normal variant. There is a bovine configuration for the innominate and left common carotid arteri es also as a normal variant. Right vertebral artery origin is unremarkable. The origin of the left ve rtebral artery is not seen. No stenosis, vasculitis or other significant carotid artery finding. No f ocal abnormality of either vertebral artery. Basilar artery is normal. IMPRESSION: Negative CT angio neck examination.
--- NOTE | 2020-01-19 20:55 | EDPHYS ---
Physician Documentation [facility] Name: Oralia Dunn Age: 45 yrs Sex: Female : 1975 Arrival Date: 01/19/2020 Time: 17:36 Bed 20 Private MD: ED Physician Felix Dougherty HPI: 01/18 18:26 This 45 yrs old Female presents to ER via Wheelchair with complaints of jmm Dizziness, Nausea. 18:26 The patient presents with dizziness. Onset: The symptoms/episode began/occurred jmm acutely, just prior to arrival. Context: occurred while the patient was walking. Modifying factors: The symptoms are alleviated by holding head still, lying down, the symptoms are aggravated by movement of head, standing up, changing position. Associated signs and symptoms: Pertinent positives: nausea, Pertinent negatives: vomiting. This is a 45 year old female with no chronic medical conditions that presents to the ED with complaints acute onset dizziness beginning just prior to arrival. Symptoms are alleviated while holding head still. Denies vomiting but states being nausea. . Historical: - Allergies: 17:56 No Known Allergies; ll1 - PSHx: 17:56 eye surgery; Breast reduction; ll1 - Immunization history:: Flu vaccine is up to date. - Social history:: Smoking status: Patient denies any tobacco usage or history of. ROS: 18:26 Constitutional: Negative for fever, chills, and weight loss, Cardiovascular: Negative jmm for chest pain, palpitations, and edema, Respiratory: Negative for shortness of breath, cough, wheezing, and pleuritic chest pain. 18:26 Neuro: Positive for dizziness. 18:26 All other systems are negative. Exam: 18:26 Constitutional: This is a well developed, well nourished patient who is awake, alert, jmm and in no acute distress. Head/Face: atraumatic. 18:26 ENT: Moist Mucus Membranes Neck: Trachea midline, Supple Chest/axilla: Normal chest wall appearance and motion. Cardiovascular: Regular rate and rhythm. No edema appreciated Respiratory: Normal respirations, no respiratory distress appreciated Abdomen/GI: Non distended, soft Back: Normal ROM Skin: General appearance color normal MS/ Extremity: Moves all extremities, no obvious deformities appreciated, no edema noted to the lower extremities 18:26 Eyes: Nystagmus: fatiguable horizontal nystagmus. 18:26 Neuro: Orientation: is normal, Mentation: is normal, Memory: is normal, Cerebellar function: normal finger to nose testing, heel to gonsales testing is normal. 18:26 Psych: Behavior/mood is pleasant, cooperative. Vital Signs: 17:53 BP 144 / 93; Pulse 70; Resp 18; Temp 97.7; Pulse Ox 100% ; Weight 77.11 kg; Height 5 ll1 ft. 2 in. (157.48 cm); Pain 0/10; 20:08 BP 130 / 89; Pulse 72; Resp 17; Pulse Ox 100% on R/A; sg 17:53 Body Mass Index 31.09 (77.11 kg, 157.48 cm) ll1 MDM: 18:26 Patient medically screened. [facility] 20:54 Data reviewed: vital signs, nurses notes. Counseling: I had a detailed discussion with eugene the patient and/or guardian regarding: the historical points, exam findings, and any diagnostic results supporting the discharge/admit diagnosis, lab results, radiology results, the need for outpatient follow up, to return to the emergency department if symptoms worsen or persist or if there are any questions or concerns that arise at home. 01/18 18:35 Order name: Basic Metabolic Panel; Complete Time: 19:18 [facility] 01/18 18:35 Order name: CBC with Diff; Complete Time: 19:18 [facility] 01/18 18:35 Order name: LFT's; Complete Time: 19:18 [facility] 01/18 18:35 Order name: Magnesium; Complete Time: 19:18 [facility] 01/18 18:35 Order name: NT PRO-BNP; Complete Time: 19:18 [facility] 01/18 18:35 Order name: PT-INR; Complete Time: 19:18 [facility] 01/18 18:35 Order name: Troponin (emerg Dept Use Only); Complete Time: 19:18 [facility] 01/18 18:35 Order name: XRAY Chest (1 view); Complete Time: 19:18 [facility] 01/18 18:35 Order name: EKG; Complete Time: 18:35 [facility] 01/18 18:35 Order name: CT Head Brain wo Cont; Complete Time: 19:18 [facility] 01/18 19:56 Order name: Head Angio CT; Complete Time: 20:35 [facility] 01/18 19:56 Order name: CT Neck Angio; Complete Time: 20:35 [facility] 01/18 18:35 Order name: Cardiac monitoring; Complete Time: 19:08 [facility] 01/18 18:35 Order name: EKG - Nurse/Tech; Complete Time: 19:08 [facility] 01/18 18:35 Order name: IV Saline Lock; Complete Time: 18:45 [facility] 01/18 18:35 Order name: Labs collected and sent; Complete Time: 18:45 [facility] 01/18 18:35 Order name: O2 Per Protocol; Complete Time: 18:45 [facility] 01/18 18:35 Order name: O2 Sat Monitoring; Complete Time: 18:45 [facility] Administered Medications: 18:47 Drug: Zofran (Ondansetron) 4 mg Route: IVP; Site: right antecubital; em 19:13 Follow up: Response: No adverse reaction; Marked relief of symptoms; Nausea is decreasedem 19:13 Drug: Meclizine 50 mg Route: PO; em Disposition: 01/19 07:09 Co-signature as Attending Physician, Felix Dougherty MD I agree with the assessment and kdr plan of care. Disposition: 01/19/20 20:54 Discharged to Home. Impression: Dizziness and giddiness, Vertigo. - Condition is Stable. - Discharge Instructions: Benign Positional Vertigo, Dizziness, Dary Maneuver Self-Care. - Prescriptions for Zofran ODT 4 mg Oral tablet,disintegrating - place 1 tablet by TRANSLINGUAL route every 4-6 hours; 20 tablet. Meclizine 25 mg Oral Tablet - take 1 tablet by ORAL route every 8 hours As needed; 30 tablet. - Medication Reconciliation Form, Thank You Letter, Antibiotic Education, Prescription Opioid Use form. - Follow up: Private Physician; When: 2 - 3 days; Reason: Recheck today's complaints, Continuance of care, Re-evaluation by your physician. Signatures: Dispatcher [employer] Gera Rashid RN Felix Quispe MD MD kdr Mickail, Joel, PA PA jmm Munoz, Edgar, RN RN em Lewis, Lynsay, RN RN ll1 Corrections: (The following items were deleted from the chart) 01/18 21:16 20:54 01/19/2020 20:54 Discharged to Home. Impression: Dizziness and giddiness; sg Vertigo. Condition is Stable. Forms are Medication Reconciliation Form, Thank You Letter, Antibiotic Education, Prescription Opioid Use. Follow up: Private Physician; When: 2 - 3 days; Reason: Recheck today's complaints, Continuance of care, Re-evaluation by your physician. eugene
--- NOTE | 2020-01-19 20:55 | ER ---
Nurse's Notes [facility] Name: Oralia Dunn Age: 45 yrs Sex: Female : 1975 Arrival Date: 01/19/2020 Time: 17:36 Bed 20 Private MD: Diagnosis: Dizziness and giddiness;Vertigo Presentation: 01/18 17:53 Chief complaint: Patient states: Slight dizziness started at 1500 today. Major spinning ll1 since 1600 with nausea, and near syncope feeling. No trouble talking, grasps equal. Coronavirus screen: Client denies travel out of the [place] in the last 14 days. At this time, the client does not indicate any symptoms associated with coronavirus-19. Ebola Screen: Patient denies travel to an Ebola-affected area in the 21 days before illness onset. Initial Sepsis Screen: Does the patient meet any 2 criteria? No. Patient's initial sepsis screen is negative. Risk Assessment: Do you want to hurt yourself or someone else? Patient reports no desire to harm self or others. Onset of symptoms was January 19, 2020. 17:53 Method Of Arrival: Wheelchair ll1 17:53 Acuity: SHIRA 3 ll1 Historical: - Allergies: 17:56 No Known Allergies; ll1 - PSHx: 17:56 eye surgery; Breast reduction; ll1 - Immunization history:: Flu vaccine is up to date. - Social history:: Smoking status: Patient denies any tobacco usage or history of. Screenin:35 Abuse screen: Denies threats or abuse. Nutritional screening: No deficits noted. em Tuberculosis screening: No symptoms or risk factors identified. Fall Risk Secondary diagnosis (15 points) impaired mobility, IV access (20 points). Total Be Fall Scale indicates Low Risk Score (25-44 pts). Side Rails Up X 2 Frequent Obs/Assesments occuring Family Present and informed to notify staff if they need to leave bedside. Assessment: 18:45 General: Appears in no apparent distress. comfortable, Behavior is calm, cooperative, em appropriate for age, Denies fever. Pain: Denies pain. Neuro: Level of Consciousness is awake, alert, obeys commands, Oriented to person, place, time, situation, Appropriate for age Culinary Assistant are equal bilaterally Reports dizziness, Denies weakness blurred vision. Cardiovascular: Capillary refill < 3 seconds Patient's skin is warm and dry. Respiratory: Airway is patent Respiratory effort is even, unlabored, Respiratory pattern is regular, symmetrical. GI: Abdomen is flat, Reports nausea, vomiting. Derm: Skin is intact, is healthy with good turgor, Skin is pink, warm \T\ dry. Musculoskeletal: Capillary refill < 3 seconds, Range of motion: intact in all extremities. 19:25 Reassessment: pt ambulatory with steady gait across duarte to restroom, pt back into bed sg with no issues. 19:32 Reassessment: Santosh at bedside reassessing pt at this time. sg Vital Signs: 17:53 BP 144 / 93; Pulse 70; Resp 18; Temp 97.7; Pulse Ox 100% ; Weight 77.11 kg; Height 5 ll1 ft. 2 in. (157.48 cm); Pain 0/10; 20:08 BP 130 / 89; Pulse 72; Resp 17; Pulse Ox 100% on R/A; sg 17:53 Body Mass Index 31.09 (77.11 kg, 157.48 cm) ll1 ED Course: 17:36 Patient arrived in ED. ds1 17:56 Triage completed. ll1 17:56 Arm band placed on. ll1 18:26 Santosh Bashir PA is PHCP. [facility] 18:26 Felix Dougherty MD is Attending Physician. [facility] 18:28 Luan Hess, RN is Primary Nurse. em 18:47 Initial lab(s) drawn, by md, sent to lab. Inserted saline lock: 20 gauge in right em antecubital area, using aseptic technique. Blood collected. 18:56 XRAY Chest (1 view) In Process Unspecified. EDMS 18:56 CT Head Brain wo Cont In Process Unspecified. EDMS 20:[address] In Process Unspecified. EDMS 20:21 CT Neck Angio In Process Unspecified. EDMS 20:39 Primary Nurse role handed off by Luan Hess, RN 20:39 Gera Burgos, SMITHA is Primary Nurse. sg Administered Medications: 18:47 Drug: Zofran (Ondansetron) 4 mg Route: IVP; Site: right antecubital; em 19:13 Follow up: Response: No adverse reaction; Marked relief of symptoms; Nausea is decreasedem 19:13 Drug: Meclizine 50 mg Route: PO; em Outcome: 20:54 Discharge ordered by MD. knight 21:16 Patient left the ED. sg Signatures: Dispatcher [employer] Gera Rashid RN RN Santosh Aldridge PA PA jmm Munoz, Edgar, RN RN Ju Coats ds1 Mesha Rubio RN RN ll1 Corrections: (The following items were deleted from the chart) 18:04 17:53 Chief complaint: Patient states: Slight dizziness started at 1500 today. Major ll1 spinning since 1600 with nausea, and near syncope feeling. ll1
[2020-01-19 21:22] VITALS: TEMP 97.7; O2SAT 100
[2020-01-19 21:24] VITALS: BP 130/89
--- NOTE | 2020-01-20 12:25 | EKG ---
Test Date: 2020-01-19 Test Time: 18:53:13 Sales And Operations Trainee: RUBY MEASUREMENT RESULTS: Intervals: Rate: 67 ME: 136 QRSD: 90 QT: 438 QTc: 462 [place]: P: 41 ME: 136 QRS: 33 T: 38 INTERPRETIVE STATEMENTS: Normal sinus rhythm Cannot rule out Anterior infarct, age undetermined Abnormal ECG Compared to ECG 08/24/2018 16:47:39 Sinus arrhythmia no longer present Myocardial infarct finding still present Electronically Signed On 01-20-20 12:24:20 CDT by Titus Davila
== END 2020-01-19 21:16 | disposition home or self-care (01) ==
LOC: ER 17:33
DX: R42 Dizziness and giddiness (principal)
CPT/HCPCS: 93005; 85025; 80048; 36415; 83735; 85610; 80076; 84484; 83880; 70450; 70496; 70498; 71045; 96374; 99284; Q9967; J2405; J8597

== ENCOUNTER → 2023-05-31 | Emergency (ER) | payer BC ==
[2023-05-31 21:31] LABS: Absolute Lymphocytes (CBC) 1.7 K/uL (0.7-4.9); Hematocrit 27.6 % (36.0-45.0); Lymphocytes % 25.7 % (15.3-44.8); MCV 84.6 fL (80-100); MPV 7.9 fL (7.6-11.3); Platelets 366 thou/uL (152-406); RBC Red Blood Cell Count 3.26 M/uL (3.86-4.86)
[2023-05-31 21:52] LABS: ALT/SGPT 78 U/L (13-56); AST/SGOT 44 U/L (15-37); Albumin 2.6 g/dL (3.4-5.0); Alkaline Phosphatase 78 U/L (45-117); BUN Blood Urea Nitrogen 12 mg/dL (7-18); Bicarbonate 26 mEq/L (21-32); Bilirubin Total 0.2 mg/dL (0.2-1.0); Glomerular Filtration Rate 96 ml/min (=/>90); Glucose Level 95 mg/dL (74-106); Magnesium 1.8 mg/dL (1.6-2.4); NT PRO-BNP 192 pg/mL (<125); Potassium 3.7 mEq/L (3.5-5.1); Protein, Total 6.4 g/dL (6.4-8.2); Sodium Level 137 mEq/L (136-145); Troponin High Sensitivity 5.8 pg/mL (<58.9)
[2023-05-31 22:04] LABS: Bilirubin Direct < 0.1 mg/dL (0-0.2); Bilirubin Indirect, Calculated ND mg/dL (0.2-0.8)
--- NOTE | 2023-05-31 22:33 | ER ---
Nurse's Notes [facility] Name: Oralia Dunn Age: 48 yrs Sex: Female : 1975 Arrival Date: 05/31/2023 Time: 20:36 Bed 13 Private MD: Diagnosis: Elevated blood pressure, anemia, gestational hypertension. Dilutional anemia Presentation: 05/31 20:46 Chief complaint: Patient states: 5 DAYS POST . NOTICED HER BP WAS HIGH 150/104. jj7 Coronavirus screen: At this time, the client does not indicate any symptoms associated with coronavirus-19. Ebola Screen: No symptoms or risks identified at this time. Initial Sepsis Screen: Does the patient meet any 2 criteria? No. Patient's initial sepsis screen is negative. Does the patient have a suspected source of infection? No. Patient's initial sepsis screen is negative. Risk Assessment: Do you want to hurt yourself or someone else? Patient reports no desire to harm self or others. Onset of symptoms was May 31, 2023. 20:46 Method Of Arrival: Ambulatory [facility] 20:46 Acuity: SHIRA 4 jj7 Triage Assessment: 20:48 General: Appears in no apparent distress. comfortable, Behavior is calm, cooperative, jj7 appropriate for age. Pain: Denies pain. Cardiovascular: No deficits noted. Parent/caregiver reports patient has had HTN. 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 Flu vaccine is not up to date. - Social history:: Smoking status: Patient denies any tobacco usage or history of. Patient/guardian denies using alcohol, street drugs. - Family history:: not pertinent. Screenin:50 [facility] ED Fall Risk Assessment (Adult) History of falling in the last 3 months, jj7 including since admission No falls in past 3 months (0 pts). [facility] ED Fall Risk Assessment (Adult) History of falling in the last 3 months, including since admission Confusion or Disorientation No (0 pts) Intoxicated or Sedated No (0 pts) Impaired Gait No (0 pts) Mobility Assist Device Used No (0 pt) Altered Elimination No (0 pt) Score/Fall Risk Level 0 - 2 = Low Risk Oriented to surroundings, Maintained a safe environment, Educated pt \T\ family on fall prevention, incl call for assistance when getting out of bed. Abuse screen: Denies threats or abuse. Nutritional screening: No deficits noted. Tuberculosis screening: No symptoms or risk factors identified. Assessment: 20:46 Reassessment: SEE TRIAGE ASSESSMENT. jj7 Vital Signs: 20:46 BP 153 / 94; Pulse 78; Resp 17; Temp 97.1; Pulse Ox 100% ; Weight 81.65 kg; Height 5 j ft. 2 in. ; Pain 0/10; 22:01 BP 144 / 95; Pulse 87; Temp 18; Pulse Ox 99% ; cp4 20:46 Body Mass Index 32.92 (81.65 kg, 157.48 cm) j7 20:46 Pain Scale: Adult [facility] ED Course: 20:43 Patient arrived in ED. gm2 20:48 Triage completed. jj7 20:48 Arm band placed on right wrist. jj7 20:49 Simon Perez MD is Attending Physician. sp4 20:50 Patient has correct armband on for positive identification. jj7 20:51 Emi Casillas is Primary Nurse. cp4 22:00 Inserted saline lock: 22 gauge in right hand, using aseptic technique. Blood collected. jj7 22:34 No provider procedures requiring assistance completed. IV discontinued, intact, jj7 bleeding controlled, No redness/swelling at site. Pressure dressing applied. Administered Medications: No medications were administered Medication: 22:40 VIS not applicable for this client. jj7 Outcome: 22:33 Discharge ordered by . sp4 22:34 Discharged to home ambulatory, jj7 22:34 Condition: good 22:34 Discharge instructions given to patient, Instructed on discharge instructions, follow up and referral plans. Demonstrated understanding of instructions, follow-up care, 22:43 Patient left the ED. j7 Signatures: Boo Vinson RN RN j7 Simon Perez MD MD sp4 Emi Casillas [facility] Maribel Szymanski [facility]
--- NOTE | 2023-05-31 22:33 | EDPHYS ---
Physician Documentation [facility] Name: Oralia Dunn Age: 48 yrs Sex: Female : 1975 Arrival Date: 05/31/2023 Time: 20:36 Bed 13 Private MD: ED Physician Simon Perez HPI: 05/31 20:49 This 48 yrs old Female presents to ER via Ambulatory with complaints of High sp4 Blood Pressure, 5 days post off from a csection. 20:59 Is a very pleasant 48-year-old female, 5 days postop after , patient was sp4 delivered at 36 weeks and 6 days, patient was diagnosed with early preeclampsia and delivered via . Patient was delivered at [facility]. She is currently not on any medication but she did take somebody else's labetalol prior to her arrival. Patient noticed elevated blood pressure today at home. She is currently breast-feeding. She takes vitamins and Prilosec. Labetalol is not her personal medicine she took somebody else's medication. . 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 Flu vaccine is not up to date. - Social history:: Smoking status: Patient denies any tobacco usage or history of. Patient/guardian denies using alcohol, street drugs. - Family history:: not pertinent. ROS: 20:59 Constitutional: Negative for fever, chills, and weight loss, sp4 20:59 All other systems are negative, Exam: 20:59 Constitutional: This is a well developed, well nourished patient who is awake, alert, sp4 and in no acute distress. Head/Face: Normocephalic, atraumatic. Eyes: Pupils equal round and reactive to light, extra-ocular motions intact. Lids and lashes normal. Conjunctiva and sclera are not injected. Cornea within normal limits. Periorbital areas with no swelling, redness, or edema. ENT: Nares patent. No nasal discharge, no septal abnormalities noted. Tympanic membranes are normal and external auditory canals are clear. Oropharynx with no redness, swelling, or masses, exudates, or evidence of obstruction, uvula midline. Mucous membranes moist. Neck: Trachea midline, no thyromegaly or masses palpated, and no cervical lymphadenopathy. Supple, full range of motion without nuchal rigidity, or vertebral point tenderness. Chest/axilla: Normal chest wall appearance and motion. Nontender with no deformity. No lesions are appreciated. Cardiovascular: Regular rate and rhythm with a normal S1 and S2. No gallops, murmurs, or rubs. Normal PMI, no JVD. No pulse deficits. Respiratory: Lungs have equal breath sounds bilaterally, clear to auscultation and percussion. No rales, rhonchi or wheezes noted. No increased work of breathing, no retractions or nasal flaring. Abdomen/GI: Soft, non-tender, with normal bowel sounds. No distension or tympany. No guarding or rebound. No evidence of tenderness throughout. Back: No spinal tenderness. No costovertebral tenderness. Skin: Warm, dry with normal turgor. Normal color with no rashes, no lesions, and no evidence of cellulitis. MS/ Extremity: Pulses equal, no cyanosis. Neurovascular intact. Full, normal range of motion. Neuro: Awake and alert, GCS 15, oriented to person, place, time, and situation. Cranial nerves II-XII grossly intact. Motor strength 5/5 in all extremities. Sensory grossly intact. Psych: Awake, alert, with orientation to person, place and time. Behavior, mood, and affect are within normal limits 20:59 ECG was reviewed by the Attending Physician. 2100 normal sinus rhythm at 77 sp4 Vital Signs: 20:46 BP 153 / 94; Pulse 78; Resp 17; Temp 97.1; Pulse Ox 100% ; Weight 81.65 kg; Height 5 jj7 ft. 2 in. ; Pain 0/10; 22:01 BP 144 / 95; Pulse 87; Temp 18; Pulse Ox 99% ; cp4 20:46 Body Mass Index 32.92 (81.65 kg, 157.48 cm) [facility] 20:46 Pain Scale: Adult [facility] MDM: 20:59 Differential diagnosis: hypertensive crisis, Malignant HTN, Hypertensive urgency. Data sp4 reviewed: vital signs, nurses notes. Consideration of Admission/Observation Escalation of care including admission/observation considered. 21:10 Patient medically screened. sp4 22:31 ED course: Patient's blood pressure is elevated but appropriately high for the levels sp4 of anemia hemoglobin 9.3. We expect blood pressure to normalize in 2-4 weeks. Will advise follow-up with OB doctor as scheduled in 5 weeks for repeat blood work and blood pressure check in the office.. Will recommend blood pressure diary with blood pressure checks once every morning and once every evening for consistency. . 05/31 20:49 Order name: Basic Metabolic Panel; Complete Time: 22:24 sp4 05/31 20:49 Order name: CBC with Diff; Complete Time: 21:44 sp4 05/31 20:49 Order name: LFT's; Complete Time: 22:24 sp4 05/31 20:49 Order name: Magnesium; Complete Time: 22:24 sp4 05/31 20:49 Order name: NT PRO-BNP; Complete Time: 22:24 4 05/31 20:49 Order name: PT-INR 05/31 20:49 Order name: Troponin HS; Complete Time: 22:24 sp4 05/31 20:49 Order name: EKG; Complete Time: 20:50 05/31 20:49 Order name: Cardiac monitoring; Complete Time: 21:07 sp05/31 20:49 Order name: EKG - Nurse/Tech; Complete Time: 21:07 sp4 05/31 20:49 Order name: IV Saline Lock; Complete Time: 21:13 sp05/31 20:49 Order name: Labs collected and sent; Complete Time: 21: sp05/31 20:49 Order name: O2 Per Protocol; Complete Time: 21: sp4 05/31 20:49 Order name: O2 Sat Monitoring; Complete Time: 21: EC:59 Rate is 77 beats/min. Rhythm is regular, Normal Sinus Rhythm. QRS [place] is Normal. RI sp4 interval is normal. QRS interval is normal. QT interval is normal. No Q waves. T waves are Normal. No ST changes noted. Clinical impression: Normal ECG. Interpreted by me. Reviewed by me. Administered Medications: No medications were administered Disposition Summary: 05/31/23 22:33 Discharge Ordered Problem: new sp4 Symptoms: have improved sp4 Condition: Stable sp4 Diagnosis - Elevated blood pressure, anemia, gestational hypertension. Dilutional anemia sp4 Followup: sp4 - With: Private Physician - When: as scheduled in 5 weeks - Reason: Discharge Instructions: - Discharge Summary Sheet sp4 - Care After Delivery sp4 - How to Take Your Blood Pressure, [id number] sp4 Forms: - Patient Portal Instructions sp4 Signatures: Dispatcher [employer] Boo Franco RN RN jj7 Simon Perez MD MD sp4
[2023-05-31 23:12] LABS: Protime INR 0.92
--- NOTE | 2023-06-01 12:55 | EKG ---
Test Date: 2023-05-31 Test Time: 21:01:45 Offal Separator: SUSIE MEASUREMENT RESULTS: Intervals: Rate: 77 AR: 144 QRSD: 88 QT: 378 QTc: 427 [place]: P: 33 AR: 144 QRS: 36 T: 46 INTERPRETIVE STATEMENTS: Normal sinus rhythm Low voltage QRS Cannot rule out Anterior infarct, age undetermined Abnormal ECG Compared to ECG 01/19/2020 18:53:13 Low QRS voltage now present Myocardial infarct finding still present Electronically Signed On 06-01-23 12:52:33 QUESTIONED DOCUMENTS EXAMINER by Mario Burt
[2023-06-01 16:39] VITALS: BP 144/95; TEMP 18; O2SAT 99
== END ==
LOC: ER 20:36
DX: O13.5 Gestational [pregnancy-induced] hypertension without significant proteinuria, complicating the puerperium (principal); D64.89 Other specified anemias; Z98.890 Other specified postprocedural states
CPT/HCPCS: 36415; 80048; 80076; 83735; 83880; 84484; 85025; 85610; 93005